=== PATIENT | male | born 1970 | race Caucasian/White ===

== ENCOUNTER 2024-09-06 13:02 | Emergency (ER) | payer SELFPAY ==
--- NOTE | ~2024-09-06 | XR_ITS ---
EXAMINATION: XR shoulder LT min 2V DATE: 09/06/2024 14:12 INDICATION: Left shoulder injury TECHNIQUE: AP internally and externally rotated, AP oblique externally rotated and transscapular Y vi ews of the left shoulder were obtained. COMPARISON: None FINDINGS: Normal alignment. No fracture.Mild left glenohumeral and acromioclavicular osteoarthritis. Soft tiss ues are unremarkable. Visualized portion of the left lung are clear. IMPRESSION: Mild left glenohumeral and acromioclavicular osteoarthritis. No acute osseous abnormality. Reviewed, dictated and finalized at location B. IMPRESSION: Mild left glenohumeral and acromioclavicular osteoarthritis. No acute osseous a bnormality.
--- NOTE | 2024-09-06 13:12 | ED_ITS ---
HPI - Extremity Injury (Upper) General Chief Complaint: Extremity Injury, Upper Stated Complaint: lt shoulder injury Time Seen by Provider: 09/06/24 13:50 Source: patient and RN notes reviewed Mode of arrival: ambulatory Limitations: no limitations History of Present Illness HPI narrative: 53-year-old male presents with concern for left shoulder pain. Reports Thursday evening he slipped in his camper, he did not fall on the left shoulder but he felt it pop forward. Reports intense pain at the time. He reports now he has pain and bruising near the axilla on the upper arm. He reports pain with rest, worsening pain with range of motion. He reports limited abduction and range of motion. He reports he has used ice on the 1st night and has been using an [id number]-[id number] pain cream. He denies distal dysfunction of the left upper extremity MD complaint: injury to: left and shoulder Related Data Home Medications ?Medication ?Instructions ?Recorded ?Confirmed ?Last Taken ?Type cetirizine 10 mg tablet (Zyrtec) 10 mg PO DAILY PRN 12/10/23 Unknown History duloxetine 20 mg capsule,delayed 40 mg PO DAILY 12/10/23 Unknown History release losartan 25 mg tablet 25 mg PO DAILY 12/10/23 Unknown History multivitamin-ferrous 1 tablet PO DAILY 12/10/23 Unknown History fumarate-folic acid 18 mg-400 mcg tablet (Centrum) omeprazole magnesium 20 mg 20 mg PO DAILY 12/10/23 Unknown History capsule,delayed release ([employer] (omeprazole)) sildenafil 50 mg tablet 50 mg PO DAILY PRN 12/10/23 Unknown History simvastatin 40 mg tablet 40 mg PO DAILY 12/10/23 Unknown History Allergies Allergy/AdvReac Type Severity Reaction Status Date / Time No Known Allergies Allergy Verified 09/06/24 13:29 Review of Systems Review of Systems: CONSTITUTIONAL: Denies malaise, chills, sweats, or fever. SKIN: Denies rash or itching, open skin, laceration, abrasion, redness, warmth, swelling. MUSCULOSKELETAL: Reports left shoulder pain and bruising NEUROLOGIC: Denies numbness, weakness All systems reviewed & are unremarkable except as noted in HPI and below PMFSH Past Medical History Medical History (Updated 09/06/24 @ 14:28 by Shayla Kelley NP) Sleep apnea Allergies Arthritis Hypertension Surgical History Surgical History (Updated 12/10/23 @ 08:41 by Geovanna Rome MA) S/P surgery on nasal septum Family History Family History (Updated 12/10/23 @ 08:42 by Geovanna Rome MA) Grandparent Hypertension Social History Social History Smoking status: Never smoker Comments At time of signature, agree with nursing past medical, surgical, social and family history. There is no relevant family history pertinent to the presenting complaint Exam Narrative: GENERAL: Well-appearing, well-nourished, and in no acute distress. HEAD: Normocephalic, atraumatic. EYES: PERRLA, conjunctivae clear NECK: Supple. CHEST: Speaks in full sentences. No respiratory distress. HEART: Regular rate and rhythm. Normal and equal peripheral pulses. EXTREMITIES: Right shoulder has grossly normal strength and sensation, limited normal range of motion. No edema. Ecchymosis noted. Normal sensation with sensitivity to light touch and pain. Anterior shoulder tenderness. No open wounds, no skin tenting, no devitalized tissue or atrophy, no trophic changes, no obvious deformity, alignment normal, nearby joints and structures intact. Distal pulses palpable and equal bilaterally, skin warm, dry, pink. Capillary refill less than 3 seconds. SKIN: Warm, dry, no rash. NEURO: Alert and oriented x3. PSYCH: Normal mood and affect Course Course Emergency Course: Patient is aware of diagnosis, understands and agrees to treatment plan. Anticipatory guidance given. Patient agrees to follow-up as directed and is aware of reasons to seek care at the emergency department. Portions of this record may have been created with voice recognition software Level of Care: Express Care Visit Vital Signs Vital signs: Vital Signs Temperature 98.4 F 09/06/24 13:25 Pulse Rate 75 09/06/24 13:25 Respiratory Rate 16 09/06/24 13:25 Blood Pressure 138/76 09/06/24 13:25 Pulse Oximetry 97 09/06/24 13:25 Temperature 98.4 F 09/06/24 13:25 Pulse Rate 75 09/06/24 13:25 Respiratory Rate 16 09/06/24 13:25 Blood Pressure 138/76 09/06/24 13:25 Pulse Oximetry 97 09/06/24 13:25 Reviewed. MDM - Extremity Injury (Upper) MDM Narrative Medical decision making narrative: Patients injury and pain is consistent with musculoskeletal etiology. No signs of neurological or vascular compromise on exam. Compartments and tissues are soft without signs of compartment syndrome. Pain is felt appropriate for further evaluation on an outpatient basis. Imaging Data My impression: Images reviewed, interpreted by radiologist, agree, see report. Radiologist's impression: EXAMINATION: XR shoulder LT min 2V DATE: 09/06/2024 14:12 INDICATION: Left shoulder injury TECHNIQUE: AP internally and externally rotated, AP oblique externally rotated and transscapular Y views of the left shoulder were obtained. COMPARISON: None FINDINGS: Normal alignment. No fracture.Mild left glenohumeral and acromioclavicular osteoarthritis. Soft tissues are unremarkable. Visualized portion of the left lung are clear. IMPRESSION: Mild left glenohumeral and acromioclavicular osteoarthritis. No acute osseous abnormality. Critical Care Time Critical Care Time Critical Care Time: No Discharge Plan Discharge Clinical Impression: Shoulder sprain Patient Disposition: Home Condition: Stable Instructions: How to Use a Sling (ED), Shoulder Sprain (ED) Additional Instructions: Your x-ray looks normal. Avoid activities that cause pain until the pain subsides. Ice to the area 20-30 minutes 4-6 times a day Sling as needed for comfort Tylenol for lesser pain Ibuprofen regularly for the next 2-3 days for the inflammation Follow up with Ortho or your primary care provider if the condition is not improving within 1 week. If the condition worsens with numbness, tingling, decrease sensation with weakness seek treatment in the emergency room immediately. Patient Language: Hebrew Prescriptions: No Action Zepbound 2.5 mg/0.5 mL pen injector 2.5 mg subcut WEEKLY Qty: 2 0RF Rx Instructions: for 4 weeks losartan 25 mg tablet 25 mg PO DAILY duloxetine 20 mg capsule,delayed release(DR/EC) 40 mg PO DAILY simvastatin 40 mg tablet 40 mg PO DAILY cetirizine [Zyrtec] 10 mg tablet 10 mg PO DAILY PRN Centrum 18-400 mg-mcg tablet 1 tablet PO DAILY omeprazole magnesium [[employer] (omeprazole)] 20 mg capsule,delayed release(DR/EC) 20 mg PO DAILY sildenafil 50 mg tablet 50 mg PO DAILY PRN Rx Instructions: administer 30 minutes to 4 hours before activity scopolamine base 1 mg over 3 days patch 3 day 1 patch transdermal Q72H PRN (Reason: motion sickness) Qty: 4 0RF Rx Instructions: Apply 1 patch (1 mg/3 days) behind ear at least 4 hours prior to required antiemetic effect amlodipine 5 mg tablet See Rx Instructions .ROUTE .COMPLEX Qty: 90 0RF Dose Instruction: TAKE 1 TABLET BY MOUTH DAILY Rx Instructions: TAKE 1 TABLET BY MOUTH DAILY Follow-up/Referrals: Marques Prakash MD [Physician] - Solo Wang MD [Primary Care Provider] - Time of Disposition: 14:59
[2024-09-06 13:25] VITALS: BP 138/76; PULSE 75; RESP 16; TEMP 36.9; O2SAT 97
== END 2024-09-06 15:04 | disposition home or self-care (01) ==
PROVIDERS: Emergency Provider Nurse Practitioner; PCP Family Medicine
DX: S43.402A Unspecified sprain of left shoulder joint, initial encounter (principal); W18.40XA Slipping, tripping and stumbling without falling, unspecified, initial encounter; I10 Essential (primary) hypertension; M19.90 Unspecified osteoarthritis, unspecified site
CPT/HCPCS: 73030; 99213; G0463